=== PATIENT | male | born 1980 | race Caucasian/White ===

== ENCOUNTER 2016-09-09 06:42 | Emergency (ER) | payer OTHER ==
--- NOTE | 2016-09-09 08:01 | DIAGNOSTIC IMAGING REPORT ---
PROCEDURE: XR CHEST 1 VIEW INDICATION: CHEST PAIN TECHNIQUE: Single view chest. 07:41 hours COMPARISON: None. FINDINGS: The cardiomediastinal contour and central vasculature are normal. The lungs are clear without focal consolidation, pleural effusion or pneumothorax. The osseous structures are intact. IMPRESSION: 1. No evidence of acute cardiopulmonary disease.
--- NOTE | 2016-09-09 08:52 | ED CLINICAL REPORT ---
Clinical Report - Physicians/Mid Levels [facility] [address] [place] [address] 09/09/2016 6:45 Patient: LAUREN RODRIGUEZ Time Seen: 06:50; initial patient contact. Arrived- By private vehicle. Historian- patient. HISTORY OF PRESENT ILLNESS Chief Complaint: CHEST PAIN. This started today and is still present. It was gradual in onset and has been constant. Onset during rest. At its maximum, severity described as mild. When seen in the E.D., severity described as mild. It is described as pressure and tightness and it is described as located in the central chest and left chest area. No radiation. No nausea, vomiting, difficulty breathing or diaphoresis. Similar symptoms previously: None. Recent medical care: Not recently seen/assessed. REVIEW OF SYSTEMS No fever, chills, pedal edema, calf pain or fainting episodes. He has had a cough. All systems otherwise negative, except as recorded above. PAST HISTORY Asthma. SURGERIES: Adenoidectomy. Tympanostomy Tubes. SOCIAL HISTORY Former smoker. Regular alcohol use. No drug use. ADDITIONAL NOTES The nursing notes have been reviewed with agreement regarding the chief complaint, PMH and patient medications and allergies. PHYSICAL EXAM Vital Signs: 09/09/2016 06:49 BP: 141/84. HR: 77. RR: 20. O2 saturation: 97%. Temp: 98 F. Pain level now: 4/10. Have been reviewed. Hypertensive. Heart rate normal. Respiratory rate normal. Temperature normal. Oxygen saturation normal. Appearance: Alert. Oriented X3. No acute distress. Eyes: Eyes normal inspection. ENT: Pharynx normal. CVS: Normal heart rate and rhythm. Heart sounds normal. Respiratory: No respiratory distress. Chest pain reproducible with palpation of the anterior and lateral chest wall and with deep breathing. Breath sounds normal. No decreased air movement, rales, rhonchi, wheezes or prolonged expiration. Abdomen: Soft and nontender. Bowel sounds normal. Skin: Skin warm and dry. Normal skin color. Extremities: No calf tenderness. No lower extremity edema. Neuro: Oriented X 3. LABS, X-RAYS, AND EKG EKG: EKG time: (730). No acute process. No acute ischemia. Normal sinus rhythm. Rate: 62. First-degree atrioventricular block. Normal QRS complex. Normal axis. Normal ST and T waves, QT and QTc. Prior EKG unavailable. The study has been interpreted contemporaneously by me. The study has been independently viewed by me. The EKG appears to be a good tracing. I do not agree with or confirm the computer reading of the EKG. Interpretation time: 730. Chest X-ray: No acute disease. Normal lung markings present. Normal heart size. Mediastinum normal. Great vessels normal. No infiltrate. Views: AP. Technique: good. The X-rays were independently viewed by me and interpreted contemporaneously by me. Prior films were not available for comparison. Laboratory Tests: CBC w Diff: (RBOIN: 09/09/2016 07:23) ( [facility] 09/09/2016 07:33) Final results Test Result Flag Units (Reference) WHITE BLOOD COUNT 7.1 K/uL (4.5-11.5) RED BLOOD COUNT 4.66 M/uL (4.50-5.90) HEMOGLOBIN 13.9 gm/dL (13.5-17.5) HEMATOCRIT 40.6 L % (41.0-53.0) MEAN CELL VOLUME 87 fL (80-100) MEAN CORPUSCULAR HGB 30 pg (26-34) MEAN CORPUSCULAR HGB CONC 34 g/dL (31-37) RED CELL DISTRIBUTION WIDTH 13.3 % (11.6-14.8) PLATELET COUNT 289 K/uL (150-400) NEUTROPHIL % 58.1 % (50-75) LYMPH % 32.0 % (25-40) MONO % 8.0 % (3-14) EOSINOPHIL % 1.6 % (0-4) BASOPHIL % 0.3 % (0-2) CHEM 13 PANEL: (ROBIN: 09/09/2016 07:23) ( [facility] 09/09/2016 08:45) Final results Test Result Flag Units (Reference) GLUCOSE 116 H mg/dL (70-110) BUN 23 H mg/dL (7-18) CREATININE 0.9 mg/dL (0.6-1.3) Estimated GFR >60 mL/min Estimated GFR- >60 mL/min Note: Persistent reduction over 3 months in eGFR<60 mL/min/1.73 m2 defines CKD. Patients with eGFR values>=60 mL/min/1.73 m2 may also have CKD if evidence ofpersistent proteinuria. Additional information may be foundat www.kidney.org. SODIUM 140 mmol/L (136-145) POTASSIUM 4.3 mmol/L (3.5-5.1) CHLORIDE 105 mmol/L (98-107) CARBON DIOXIDE 26 mmol/L (21-32) CALCIUM 8.7 mg/dL (8.5-10.1) TOTAL PROTEIN 7.1 g/dL (6.4-8.2) ALBUMIN 4.0 g/dL (3.3-5.0) BILIRUBIN, TOTAL 0.8 mg/dL (0.0-1.0) ALKALINE PHOSPHATASE 39 L U/L (46-116) AST (SGOT) 24 U/L (15-37) ALT (SGPT) 34 U/L (12-78) MAGNESIUM 1.8 mg/dL (1.8-2.4) CPK 319 H U/L (24-260) CK-MB 3.6 H ng/mL (0.5-3.2) %CKMB 1.1 % (0.0-4.0) TROPONIN I 0.06 ng/mL (0.00-1.5) TROPONIN REFERENCE RANGE:<0.1 NEGATIVE0.1-1.5 INDETERMINANT>1.5 POSITIVE . PROGRESS AND PROCEDURES Disposition: Discharged home in good condition. Condition: good. CLINICAL IMPRESSION Gastroesophageal reflux disease with esophagitis. Atypical chest pain .12 lead EKG performed. INSTRUCTIONS Your Current Medications: STOP TAKING THE FOLLOWING MEDICATIONS: Omeprazole Oral. CONTINUE TAKING THE FOLLOWING MEDICATIONS: Albuterol Sulfate Inhalation. Aspir-81 Oral. Prescription Medications: Zantac 150 mg: take 1 orally every 12 hours. Dispense sixty (60). No refills. Substitution is permissible. Follow-up: Follow up with your doctor in about two days. Call for an appointment. Screening today revealed the patient's blood pressure to be in the pre-hypertensive range. The patient should follow up with a primary care provider for blood pressure management. (Electronically signed by Ney Carter Dr. 09/09/2016 8:56)
--- NOTE | 2016-09-09 08:52 | ED CLINICAL REPORT ---
Clinical Report - Physicians/Mid Levels [facility] [address] [place] [address] 09/09/2016 6:45 Patient: LAUREN RODRIGUEZ Time Seen: 06:50; initial patient contact. Arrived- By private vehicle. Historian- patient. HISTORY OF PRESENT ILLNESS Chief Complaint: CHEST PAIN. This started today and is still present. It was gradual in onset and has been constant. Onset during rest. At its maximum, severity described as mild. When seen in the E.D., severity described as mild. It is described as pressure and tightness and it is described as located in the central chest and left chest area. No radiation. No nausea, vomiting, difficulty breathing or diaphoresis. Similar symptoms previously: None. Recent medical care: Not recently seen/assessed. REVIEW OF SYSTEMS No fever, chills, pedal edema, calf pain or fainting episodes. He has had a cough. All systems otherwise negative, except as recorded above. PAST HISTORY Asthma. SURGERIES: Adenoidectomy. Tympanostomy Tubes. SOCIAL HISTORY Former smoker. Regular alcohol use. No drug use. ADDITIONAL NOTES The nursing notes have been reviewed with agreement regarding the chief complaint, PMH and patient medications and allergies. PHYSICAL EXAM Vital Signs: 09/09/2016 06:49 BP: 141/84. HR: 77. RR: 20. O2 saturation: 97%. Temp: 98 F. Pain level now: 4/10. Have been reviewed. Hypertensive. Heart rate normal. Respiratory rate normal. Temperature normal. Oxygen saturation normal. Appearance: Alert. Oriented X3. No acute distress. Eyes: Eyes normal inspection. ENT: Pharynx normal. CVS: Normal heart rate and rhythm. Heart sounds normal. Respiratory: No respiratory distress. Chest pain reproducible with palpation of the anterior and lateral chest wall and with deep breathing. Breath sounds normal. No decreased air movement, rales, rhonchi, wheezes or prolonged expiration. Abdomen: Soft and nontender. Bowel sounds normal. Skin: Skin warm and dry. Normal skin color. Extremities: No calf tenderness. No lower extremity edema. Neuro: Oriented X 3. LABS, X-RAYS, AND EKG EKG: EKG time: (730). No acute process. No acute ischemia. Normal sinus rhythm. Rate: 62. First-degree atrioventricular block. Normal QRS complex. Normal axis. Normal ST and T waves, QT and QTc. Prior EKG unavailable. The study has been interpreted contemporaneously by me. The study has been independently viewed by me. The EKG appears to be a good tracing. I do not agree with or confirm the computer reading of the EKG. Interpretation time: 730. Chest X-ray: No acute disease. Normal lung markings present. Normal heart size. Mediastinum normal. Great vessels normal. No infiltrate. Views: AP. Technique: good. The X-rays were independently viewed by me and interpreted contemporaneously by me. Prior films were not available for comparison. Laboratory Tests: CBC w Diff: (ROBIN: 09/09/2016 07:23) ( [facility] 09/09/2016 07:33) Final results Test Result Flag Units (Reference) WHITE BLOOD COUNT 7.1 K/uL (4.5-11.5) RED BLOOD COUNT 4.66 M/uL (4.50-5.90) HEMOGLOBIN 13.9 gm/dL (13.5-17.5) HEMATOCRIT 40.6 L % (41.0-53.0) MEAN CELL VOLUME 87 fL (80-100) MEAN CORPUSCULAR HGB 30 pg (26-34) MEAN CORPUSCULAR HGB CONC 34 g/dL (31-37) RED CELL DISTRIBUTION WIDTH 13.3 % (11.6-14.8) PLATELET COUNT 289 K/uL (150-400) NEUTROPHIL % 58.1 % (50-75) LYMPH % 32.0 % (25-40) MONO % 8.0 % (3-14) EOSINOPHIL % 1.6 % (0-4) BASOPHIL % 0.3 % (0-2) CHEM 13 PANEL: (ROBIN: 09/09/2016 07:23) ( [facility] 09/09/2016 08:45) Final results Test Result Flag Units (Reference) GLUCOSE 116 H mg/dL (70-110) BUN 23 H mg/dL (7-18) CREATININE 0.9 mg/dL (0.6-1.3) Estimated GFR >60 mL/min Estimated GFR- >60 mL/min Note: Persistent reduction over 3 months in eGFR<60 mL/min/1.73 m2 defines CKD. Patients with eGFR values>=60 mL/min/1.73 m2 may also have CKD if evidence ofpersistent proteinuria. Additional information may be foundat www.kidney.org. SODIUM 140 mmol/L (136-145) POTASSIUM 4.3 mmol/L (3.5-5.1) CHLORIDE 105 mmol/L (98-107) CARBON DIOXIDE 26 mmol/L (21-32) CALCIUM 8.7 mg/dL (8.5-10.1) TOTAL PROTEIN 7.1 g/dL (6.4-8.2) ALBUMIN 4.0 g/dL (3.3-5.0) BILIRUBIN, TOTAL 0.8 mg/dL (0.0-1.0) ALKALINE PHOSPHATASE 39 L U/L (46-116) AST (SGOT) 24 U/L (15-37) ALT (SGPT) 34 U/L (12-78) MAGNESIUM 1.8 mg/dL (1.8-2.4) CPK 319 H U/L (24-260) CK-MB 3.6 H ng/mL (0.5-3.2) %CKMB 1.1 % (0.0-4.0) TROPONIN I 0.06 ng/mL (0.00-1.5) TROPONIN REFERENCE RANGE:<0.1 NEGATIVE0.1-1.5 INDETERMINANT>1.5 POSITIVE . PROGRESS AND PROCEDURES Disposition: Discharged home in good condition. Condition: good. CLINICAL IMPRESSION Gastroesophageal reflux disease with esophagitis. Atypical chest pain .12 lead EKG performed. INSTRUCTIONS Your Current Medications: STOP TAKING THE FOLLOWING MEDICATIONS: Omeprazole Oral. CONTINUE TAKING THE FOLLOWING MEDICATIONS: Albuterol Sulfate Inhalation. Aspir-81 Oral. Prescription Medications: Zantac 150 mg: take 1 orally every 12 hours. Dispense sixty (60). No refills. Substitution is permissible. Follow-up: Follow up with your doctor in about two days. Call for an appointment. Screening today revealed the patient's blood pressure to be in the pre-hypertensive range. The patient should follow up with a primary care provider for blood pressure management. (Electronically signed by Ney Carter Dr. 09/09/2016 8:56)
--- NOTE | 2016-09-09 08:52 | ED ORDER SUMMARY ---
..... Patient: LAUREN RODRIGUEZ OrderSheet [facility] VisitID: [id number] [place] [address] 35y, M Registration Date/Time: 09/09/2016 ORDER SHEET Weight: 120.2 kg (stated) Allergies: Penicillin GENERAL ORDERS: Chest 1V Urgent (07:09/09/2016 Ella Villalta) (Ack 7:27 NHouse ER Tech1) (7:46 MWinterer R.N.) Cardiac Panel Stat (07:09/09/2016 Ella Villalta) (Ack 7:27 NHouse ER Tech1) (7:30 MWinterer R.N.) EKG - ER Stat (07:09/09/2016 Ella Villalta) (Ack 7:27 NHouse ER Tech1) (7:30 MWinterer R.N.) MEDICATION ORDERS: IV FLUIDS: IV Saline Lock (07:09/09/2016 Ella Villalta) (Ack 7:22 MWinterer R.N.) (7:30 MWinterer R.N.) ORDER SHEET NOTES: [Electronically signed by Ney Carter Dr. (08:56 09/09/2016)] [Electronically signed by Natalie Roberts R.N. (09:07 09/09/2016)] [Electronically locked/signed by Natalie Roberts R.N. (09:07 09/09/2016)]
--- NOTE | 2016-09-09 08:52 | ED ORDER SUMMARY ---
..... Patient: LAUREN RODRIGUEZ OrderSheet [facility] VisitID: [id number] [place] [address] 35y, M Registration Date/Time: 09/09/2016 ORDER SHEET Weight: 120.2 kg (stated) Allergies: Penicillin GENERAL ORDERS: Chest 1V Urgent (07:09/09/2016 Ella Villalta) (Ack 7:27 NHouse ER Tech1) (7:46 MWinterer R.N.) Cardiac Panel Stat (07:09/09/2016 Ella Villalta) (Ack 7:27 NHouse ER Tech1) (7:30 MWinterer R.N.) EKG - ER Stat (07:09/09/2016 Ella Villalta) (Ack 7:27 NHouse ER Tech1) (7:30 MWinterer R.N.) MEDICATION ORDERS: IV FLUIDS: IV Saline Lock (07:09/09/2016 Ella Villalta) (Ack 7:22 MWinterer R.N.) (7:30 MWinterer R.N.) ORDER SHEET NOTES: [Electronically signed by Ney Carter Dr. (08:56 09/09/2016)] [Electronically signed by Natalie Roberts R.N. (09:07 09/09/2016)] [Electronically locked/signed by Natalie Roberts R.N. (09:07 09/09/2016)]
--- NOTE | 2016-09-09 08:52 | ED NURSING NOTES ---
Clinical Report - Nurses [facility] [address] [place] [address] 09/09/2016 6:45 Patient: LAUREN RODRIGUEZ TRIAGE Triage time 06:47 Tha 2016. Acuity: LEVEL 3. Chief Complaint: CHEST DISCOMFORT and LEFT ARM PAIN. SEPSIS SCREEN: Sepsis Screen: negative. Negative (no infection suspected/documented). NEIL COMA SCORE: Wilmot Coma Scale: 15- eyes open spontaneously (4); best verbal response- oriented x 4 (5); best motor response- obeys commands (6). --06:54 Tamiko Valenzuela R.N. 06:49 09/09/16. BP: 141/84. HR: 77. RR: 20. O2 saturation: 97% on room air. Temp: 98 F (oral). Pain level now: 07/16. --06:54 Tamiko Valenzuela R.N. ( Patient reports sleep apnea that is severe). --06:55 Tamiko Valenzuela R.N. Weight: 120.2 kg stated. Height/Length: 74 inches Per Patient. BMI: 34. --06:51 Tamiko Valenzuela R.N. Medications Omeprazole Oral. --06:51 Tamkio Valenzuela R.N. Aspir-81 Oral. --06:51 Tamiko Valenzuela R.N. Albuterol Sulfate Inhalation. --06:51 Tamiko Valenzuela R.N. Medication/allergy information source: the patient. --06:54 Tamiko Valenzuela R.N. Allergies Penicillin. --06:51 Tamiko Valenzuela R.N. History Arrived by private vehicle. Historian: patient. Accompanied by family. Primary physician (none). This started just prior to arrival. ( Patient reports that he woke this morning feeling "funny". He reports a history of asthma, cough and some pain with inspiration at times. He reports this feeling different accompanied by left arm pain. Patient denies previous cardiac history.). PAST MEDICAL HX: Immunizations: up-to-date. SOCIAL HX: Former smoker, end date 2011. Regular alcohol use; consumes three beers a day. No drug use. No infectious disease exposure. ABUSE ASSESSMENT: No report of abuse. FALL RISK ASSESSMENT: Fall risk assessment completed. No fall risk identified. NUTRITIONAL RISK ASSESSMENT: The nutritional risk assessment revealed no deficiencies. FUNCTIONAL ASSESSMENT: Functional assessment: no impairments noted. LEARNING NEEDS ASSESSMENT: The learning needs assessment revealed no barriers. SKIN INTEGRITY ASSESSMENT: Skin integrity risk assessment completed. No skin integrity risk identified. --06:54 Tamiko Valenzuela R.N. PROBLEMS: Asthma. --06:52 Tamiko Valenzuela R.N. ADDITIONAL SURGERIES: Adenoidectomy. Tympanostomy Tubes. --06:52 Tamiko Valenzuela R.N. Interventions ID band on patient. To treatment room. --06:54 Tamiko Valenzuela R.N. PHYSICAL ASSESSMENT Ambulatory to room. Patient gowned. GENERAL / NEURO / PSYCH: Alert. Oriented X 4. Appears anxious. HEENT: Mucous membranes are pink. RESPIRATORY: Respirations not labored. CVS: Normal sinus rhythm noted. GI / : Abdomen soft and nontender. EXTREMITIES: No lower extremity edema. SKIN: Skin is warm and dry. Skin is non-tender. --06:54 Tamiko Valenzuela R.N. NURSING PROGRESS NOTES 06:54 09/09/16. preassembler printed circuit board, pulse oximeter and NIBP monitor placed on patient; monitor alarms on. Patient gowned. Head of bed elevated. Reassurance given to the patient. Two patient identifiers checked. Call light placed in reach. Side rails up x 1. Bed placed in lowest position. Brakes of bed on. Patient ready for evaluation- chart flagged and ED physician notified. --06:54 Tamiko Valenzuela R.N. 07:20 09/09/2016 Site #1 started via IV in the right antecubital space with an 18g angiocath, with aseptic technique and good blood return; one attempt. Blood drawn: rainbow set. Labeled in the presence of the patient and sent to the lab. Saline lock flushed with 10 mL saline. --07:30 Natalie Roberts R.N. EKG time: (31). EKG was ordered, performed by a tech and shown to the ED physician. --07:31 Pari Baeza 07:32 09/09/16. BP: 128/84. HR: 65. O2 saturation: 97% on room air. --07:33 Natalie Roberts R.N. 08:29 09/09/16. Cardiac rhythm: normal sinus rhythm. The patient reports no complaints and he is calm and resting quietly. Overall patient status is improved- he states feels better. --08:29 Aleksander Crespo R.N. 08:28 09/09/16. BP: 130/82. HR: 62. RR: 15. O2 saturation: 97% on room air. Pain level now 2/10. --08:29 Aleksander Crespo R.N. DISPOSITION / DISCHARGE 08:56 09/09/16. BP: 123/98. HR: 61. RR: 16. O2 saturation: 97%. Temp: 98.1 F (oral). Pain level now: 0/10. --08:57 Natalie Roberts R.N. 08:55 09/09/2016 Site #1 removed upon discharge. Catheter intact. Manual pressure and bandage applied. --09:05 Natalie Roberts R.N. Departure time: 09:00 Sep 09 2016. Condition at departure: improved and stable. No learning barriers present. Discharge instructions provided and reviewed with the patient. Reviewed medication(s) side effects, precautions and dosing information. Prescription(s) given to the patient. Patient verbalized understanding. Written instructions provided in Barbadian. The patient was discharged by the physician. He was discharged home and accompanied by spouse. He left the Emergency Department ambulatory and via private vehicle. Spouse driving. --09:06 Natalie Roberts R.N. Locked/Released at 09/09/2016 9:07 by Natalie Roberts R.N.
--- NOTE | 2016-09-09 09:07 | ED DISCHARGE INSTRUCTIONS ---
Patient: LAUREN RODRIGUEZ General Instructions [facility] VisitID: [id number] [place] [address] 35y, M Registration Date/Time: 09/09/2016 Gastroesophageal reflux disease with esophagitis. Atypical chest pain .12 lead EKG performed. INSTRUCTIONS Your Current Medications: STOP TAKING THE FOLLOWING MEDICATIONS: Omeprazole Oral. CONTINUE TAKING THE FOLLOWING MEDICATIONS: Albuterol Sulfate Inhalation. Aspir-81 Oral. Prescription Medications: Zantac 150 mg: take 1 orally every 12 hours. Dispense sixty (60). No refills. Substitution is permissible. Follow-up: Follow up with your doctor in about two days. Call for an appointment. Screening today revealed the patient's blood pressure to be in the pre-hypertensive range. The patient should follow up with a primary care provider for blood pressure management. ADDITIONAL INFORMATION Chest Pain, Noncardiac Based on your visit today, the exact cause of your chest pain is not certain. Your condition does not seem serious and your pain does not appear to be coming from your heart. However, sometimes the signs of a serious problem take more time to appear. Therefore, please watch for the warning signs listed below. Home Care: Rest today and avoid strenuous activity. Take any prescribed medicine as directed. Follow Up with your doctor or this facility as instructed or if you do not start to feel better within 24 hours. Get Prompt Medical Attention if any of the following occur: A change in the type of pain: if it feels different, becomes more severe, lasts longer, or begins to spread into your shoulder, arm, neck, jaw or back Shortness of breath or increased pain with breathing Cough with dark colored sputum (phlegm) or blood Weakness, dizziness, or fainting Fever of 100.4F (38C) or higher, or as directed by your healthcare provider Swelling, pain or redness in one leg GERD (Adult) The esophagus is a tube that carries food from the mouth to the stomach. A valve at the lower end of the esophagus prevents stomach acid from flowing upward. If this valve does not work properly, acid from the stomach enters the esophagus. If this occurs over and over, the acid will injure the lining of the esophagus. This condition is called GERD (gastroesophageal reflux disease) or acid reflux. When stomach acid flows upward into the esophagus, it causes burning, pressure or sharp pain in the upper abdomen or mid to lower chest. The pain can spread to the neck, back, or shoulder, similar to heart pain (angina). There may be belching, an acid taste in the back of the throat, chronic cough, or sore throat or hoarseness. GERD symptoms often occur during the day after a big meal, but it can also occur at night when lying down. Smoking,as well as drinking alcohol, increases the risk of GERD. GERD is a chronic condition. Once it begins, it is often lifelong. Treatment includes changes in eating habits and the use of acid juan r medications to decrease the amount of acid in the stomach. Symptoms often improve with treatment, but if treatment is stopped, the symptoms usually return after a few months. So most persons with GERD will need to continue treatment. Home Care: Take the prescribed acid juan r medication for the full course of treatment even if you begin to feel better sooner. This medication can take up to several days to fully control your symptoms. If you cant afford the prescribed medication, you can try samm-nrc-cuifbsn acid blockers, such as Pepcid AC, Tagamet, Zantac, or Aciphex. If these do not relieve your symptoms, a stronger acid-juan r can be tried, such as Prilosec OTC. You can use antacids, such as Tums, Rolaids, Mylanta, or Maalox, for pain. This will be useful the first few days after starting acid blockers when the blockers havent started working yet. Follow the directions on the label. Liquid antacids may work better than tablets. Note that antacids can interfere with absorption of certain medications. Specifically, do not take Tagamet (cimetidine), Zantac (ranitidine), or Carafate (sucralfate) within 1 hour of taking an antacid. Talk with your pharmacist if you have any questions. Limit or avoid fatty, fried, and spicy foods, as well as coffee, chocolate, mint, and foods with high acid content such as tomatoes and citrus fruit and juices (orange, grapefruit, lemon). Avoid alcohol and smoking. Dont eat large meals, especially at night. Frequent, smaller meals are best. Do not lie down right after eating. And dont eat anything 3 hours before going to bed. If you are overweight, losing weight will reduce symptoms. Women should not wear corsets or girdles because this increases pressure on the stomach and worsens reflux. If your symptoms occur during sleep, use a foam wedge to elevate your upper body (not just your head.) Or, place 4" blocks under the head of your bed. Follow Up with your doctor or as advised by our staff. Further testing may be needed. If you do not begin to improve over the next 4 days, contact your doctor. If you had an x-ray, CT scan, or ECG (electrocardiogram), it will be reviewed by a specialist. Youll be notified of any new findings that affect your care. Get Prompt Medical Attention if any of the following occur: Stomach pain gets worse or moves to the lower right abdomen (appendix area) Chest pain appears or gets worse, or spreads to the back, neck, shoulder, or arm Frequent vomiting (cant keep down liquids) Blood in the stool or vomit (red or black in color) Feeling weak or dizzy, fainting, or trouble breathing Fever of 100.4F (38C) or higher, or as directed by your healthcare provider Ranitidine Hydrochloride Oral tablet What is this medicine? RANITIDINE (ra MARISOL baldwin) is a type of antihistamine that blocks the release of stomach acid. It is used to treat stomach or intestinal ulcers. It can relieve ulcer pain and discomfort, and the heartburn from acid reflux. How should I use this medicine? Take this medicine by mouth with a glass of water. Follow the directions on the prescription label. If you only take this medicine once a day, take it at bedtime. Take your medicine at regular intervals. Do not take your medicine more often than directed. Do not stop taking except on your doctor's advice. Talk to your go go dancer regarding the use of this medicine in children. Special care may be needed. What side effects may I notice from receiving this medicine? Side effects that you should report to your doctor or health care center manager as soon as possible: agitation, nervousness, depression, hallucinations allergic reactions like skin rash, itching or hives, swelling of the face, lips, or tongue breast enlargement in both males and females breathing problems redness, blistering, peeling or loosening of the skin, including inside the mouth unusual bleeding or bruising unusually weak or tired vomiting yellowing of the skin or eyes Side effects that usually do not require medical attention (report to your doctor or health care center manager if they continue or are bothersome): constipation or diarrhea dizziness headache nausea What may interact with this medicine? atazanavir delavirdine gefitinib glipizide ketoconazole midazolam procainamide propantheline triazolam warfarin What if I miss a dose? If you miss a dose, take it as soon as you can. If it is almost time for your next dose, take only that dose. Do not take double or extra doses. Where should I keep my medicine? Keep out of the reach of children. Store at room temperature between 15 and 30 degrees C (59 and 86 degrees F). Protect from light and moisture. Keep container tightly closed. Throw away any unused medicine after the expiration date. What should I tell my health care provider before I take this medicine? They need to know if you have any of these conditions: kidney disease liver disease porphyria an unusual or allergic reaction to ranitidine, other medicines, foods, dyes, or preservatives or trying to get breast-feeding What should I watch for while using this medicine? Tell your doctor or health care center manager if your condition does not start to get better or gets worse. You may need to take this medicine for several days as prescribed before your symptoms get better. Finish the full course of tablets prescribed, even if you feel better. Do not smoke cigarettes or drink alcohol. These increase irritation in your stomach and can lengthen the time it will take for ulcers to heal. Cigarettes and alcohol can also make acid reflux or heartburn worse. If you get black, tarry stools or vomit up what looks like coffee grounds, call your doctor or health care center manager at once. You may have a bleeding ulcer. You have been given the following additional information: Chest Pain, Noncardiac GERD (Adult) Ranitidine Hydrochloride Oral tablet (Electronically signed by Ney Carter Dr. 09/09/2016 8:56)
--- NOTE | 2016-09-09 09:07 | ED MED RECONCILIATION SUMMARY ---
Patient: LAUREN RODRIGUEZ Medication Reconciliation Report [facility] VisitID: [id number] [address] [place] [address] 35y, M Registration Date/Time: 09/09/2016 Weight: 120.2 kg Height/Length: 74 in. BMI: 34.0 ALLERGIES: Penicillin The patient's Home Medications are listed below: STOP TAKING THE FOLLOWING MEDICATIONS: Omeprazole Oral CONTINUE TAKING THE FOLLOWING MEDICATIONS: Albuterol Sulfate Inhalation Aspir-81 Oral The source(s) of the original Home Medication information: patient The following Medications were given to the patient in the Emergency Department: None. The following Medications were prescribed to the patient: Zantac 150 mg: take 1 orally every 12 hours. Dispense sixty (60). No refills. Substitution is permissible. -- Ney Carter Dr.
--- NOTE | 2016-09-09 09:07 | ED MAR SUMMARY ---
..... Medication Administration Record [facility] [address] [place], [place] [id number] Patient: LAUREN RODRIGUEZ Visit ID: [id number] 35y, M Weight: 120.2 kg Height/Length: 74 in BMI: 34 ALLERGIES: Penicillin
--- NOTE | 2016-09-09 09:07 | ED DISCHARGE INSTRUCTIONS ---
Patient: LAUREN RODRIGUEZ General Instructions [facility] VisitID: [id number] [place] [address] 35y, M Registration Date/Time: 09/09/2016 Gastroesophageal reflux disease with esophagitis. Atypical chest pain .12 lead EKG performed. INSTRUCTIONS Your Current Medications: STOP TAKING THE FOLLOWING MEDICATIONS: Omeprazole Oral. CONTINUE TAKING THE FOLLOWING MEDICATIONS: Albuterol Sulfate Inhalation. Aspir-81 Oral. Prescription Medications: Zantac 150 mg: take 1 orally every 12 hours. Dispense sixty (60). No refills. Substitution is permissible. Follow-up: Follow up with your doctor in about two days. Call for an appointment. Screening today revealed the patient's blood pressure to be in the pre-hypertensive range. The patient should follow up with a primary care provider for blood pressure management. ADDITIONAL INFORMATION Chest Pain, Noncardiac Based on your visit today, the exact cause of your chest pain is not certain. Your condition does not seem serious and your pain does not appear to be coming from your heart. However, sometimes the signs of a serious problem take more time to appear. Therefore, please watch for the warning signs listed below. Home Care: Rest today and avoid strenuous activity. Take any prescribed medicine as directed. Follow Up with your doctor or this facility as instructed or if you do not start to feel better within 24 hours. Get Prompt Medical Attention if any of the following occur: A change in the type of pain: if it feels different, becomes more severe, lasts longer, or begins to spread into your shoulder, arm, neck, jaw or back Shortness of breath or increased pain with breathing Cough with dark colored sputum (phlegm) or blood Weakness, dizziness, or fainting Fever of 100.4F (38C) or higher, or as directed by your healthcare provider Swelling, pain or redness in one leg GERD (Adult) The esophagus is a tube that carries food from the mouth to the stomach. A valve at the lower end of the esophagus prevents stomach acid from flowing upward. If this valve does not work properly, acid from the stomach enters the esophagus. If this occurs over and over, the acid will injure the lining of the esophagus. This condition is called GERD (gastroesophageal reflux disease) or acid reflux. When stomach acid flows upward into the esophagus, it causes burning, pressure or sharp pain in the upper abdomen or mid to lower chest. The pain can spread to the neck, back, or shoulder, similar to heart pain (angina). There may be belching, an acid taste in the back of the throat, chronic cough, or sore throat or hoarseness. GERD symptoms often occur during the day after a big meal, but it can also occur at night when lying down. Smoking,as well as drinking alcohol, increases the risk of GERD. GERD is a chronic condition. Once it begins, it is often lifelong. Treatment includes changes in eating habits and the use of acid juan r medications to decrease the amount of acid in the stomach. Symptoms often improve with treatment, but if treatment is stopped, the symptoms usually return after a few months. So most persons with GERD will need to continue treatment. Home Care: Take the prescribed acid juan r medication for the full course of treatment even if you begin to feel better sooner. This medication can take up to several days to fully control your symptoms. If you cant afford the prescribed medication, you can try ulxi-qgq-zuvrwlb acid blockers, such as Pepcid AC, Tagamet, Zantac, or Aciphex. If these do not relieve your symptoms, a stronger acid-juan r can be tried, such as Prilosec OTC. You can use antacids, such as Tums, Rolaids, Mylanta, or Maalox, for pain. This will be useful the first few days after starting acid blockers when the blockers havent started working yet. Follow the directions on the label. Liquid antacids may work better than tablets. Note that antacids can interfere with absorption of certain medications. Specifically, do not take Tagamet (cimetidine), Zantac (ranitidine), or Carafate (sucralfate) within 1 hour of taking an antacid. Talk with your pharmacist if you have any questions. Limit or avoid fatty, fried, and spicy foods, as well as coffee, chocolate, mint, and foods with high acid content such as tomatoes and citrus fruit and juices (orange, grapefruit, lemon). Avoid alcohol and smoking. Dont eat large meals, especially at night. Frequent, smaller meals are best. Do not lie down right after eating. And dont eat anything 3 hours before going to bed. If you are overweight, losing weight will reduce symptoms. Women should not wear corsets or girdles because this increases pressure on the stomach and worsens reflux. If your symptoms occur during sleep, use a foam wedge to elevate your upper body (not just your head.) Or, place 4" blocks under the head of your bed. Follow Up with your doctor or as advised by our staff. Further testing may be needed. If you do not begin to improve over the next 4 days, contact your doctor. If you had an x-ray, CT scan, or ECG (electrocardiogram), it will be reviewed by a specialist. Youll be notified of any new findings that affect your care. Get Prompt Medical Attention if any of the following occur: Stomach pain gets worse or moves to the lower right abdomen (appendix area) Chest pain appears or gets worse, or spreads to the back, neck, shoulder, or arm Frequent vomiting (cant keep down liquids) Blood in the stool or vomit (red or black in color) Feeling weak or dizzy, fainting, or trouble breathing Fever of 100.4F (38C) or higher, or as directed by your healthcare provider Ranitidine Hydrochloride Oral tablet What is this medicine? RANITIDINE (ra MARISOL baldwin) is a type of antihistamine that blocks the release of stomach acid. It is used to treat stomach or intestinal ulcers. It can relieve ulcer pain and discomfort, and the heartburn from acid reflux. How should I use this medicine? Take this medicine by mouth with a glass of water. Follow the directions on the prescription label. If you only take this medicine once a day, take it at bedtime. Take your medicine at regular intervals. Do not take your medicine more often than directed. Do not stop taking except on your doctor's advice. Talk to your gas plumbing inspector regarding the use of this medicine in children. Special care may be needed. What side effects may I notice from receiving this medicine? Side effects that you should report to your doctor or health date night caregiver as soon as possible: agitation, nervousness, depression, hallucinations allergic reactions like skin rash, itching or hives, swelling of the face, lips, or tongue breast enlargement in both males and females breathing problems redness, blistering, peeling or loosening of the skin, including inside the mouth unusual bleeding or bruising unusually weak or tired vomiting yellowing of the skin or eyes Side effects that usually do not require medical attention (report to your doctor or health date night caregiver if they continue or are bothersome): constipation or diarrhea dizziness headache nausea What may interact with this medicine? atazanavir delavirdine gefitinib glipizide ketoconazole midazolam procainamide propantheline triazolam warfarin What if I miss a dose? If you miss a dose, take it as soon as you can. If it is almost time for your next dose, take only that dose. Do not take double or extra doses. Where should I keep my medicine? Keep out of the reach of children. Store at room temperature between 15 and 30 degrees C (59 and 86 degrees F). Protect from light and moisture. Keep container tightly closed. Throw away any unused medicine after the expiration date. What should I tell my health care provider before I take this medicine? They need to know if you have any of these conditions: kidney disease liver disease porphyria an unusual or allergic reaction to ranitidine, other medicines, foods, dyes, or preservatives or trying to get breast-feeding What should I watch for while using this medicine? Tell your doctor or health date night caregiver if your condition does not start to get better or gets worse. You may need to take this medicine for several days as prescribed before your symptoms get better. Finish the full course of tablets prescribed, even if you feel better. Do not smoke cigarettes or drink alcohol. These increase irritation in your stomach and can lengthen the time it will take for ulcers to heal. Cigarettes and alcohol can also make acid reflux or heartburn worse. If you get black, tarry stools or vomit up what looks like coffee grounds, call your doctor or health date night caregiver at once. You may have a bleeding ulcer. You have been given the following additional information: Chest Pain, Noncardiac GERD (Adult) Ranitidine Hydrochloride Oral tablet (Electronically signed by Ney Carter Dr. 09/09/2016 8:56)
--- NOTE | 2016-09-09 09:07 | ED MAR SUMMARY ---
..... Medication Administration Record [facility] [address] [place], [place] [id number] Patient: LAUREN RODRIGUEZ Visit ID: [id number] 35y, M Weight: 120.2 kg Height/Length: 74 in BMI: 34 ALLERGIES: Penicillin
--- NOTE | 2016-09-09 09:07 | ED MED RECONCILIATION SUMMARY ---
Patient: LAUREN RODRIGUEZ Medication Reconciliation Report [facility] VisitID: [id number] [address] [place] [address] 35y, M Registration Date/Time: 09/09/2016 Weight: 120.2 kg Height/Length: 74 in. BMI: 34.0 ALLERGIES: Penicillin The patient's Home Medications are listed below: STOP TAKING THE FOLLOWING MEDICATIONS: Omeprazole Oral CONTINUE TAKING THE FOLLOWING MEDICATIONS: Albuterol Sulfate Inhalation Aspir-81 Oral The source(s) of the original Home Medication information: patient The following Medications were given to the patient in the Emergency Department: None. The following Medications were prescribed to the patient: Zantac 150 mg: take 1 orally every 12 hours. Dispense sixty (60). No refills. Substitution is permissible. -- Ney Carter Dr.
== END 2016-09-09 09:04 | disposition home or self-care (01) ==
LOC: ED SRH 06:42
DX: K21.0 Gastro-esophageal reflux disease with esophagitis (principal); R07.89 Other chest pain; J45.909 Unspecified asthma, uncomplicated; Z79.82 Long term (current) use of aspirin; Z79.899 Other long term (current) drug therapy; Z87.891 Personal history of nicotine dependence; Z88.0 Allergy status to penicillin
CPT/HCPCS: 90100; 90616; 90617; 92610; 92720; 95059